=== PATIENT | male | born 1985 | race Caucasian/White ===

== ENCOUNTER 2019-10-17 16:07 | Observation (INO) ==
[2019-10-17] MEDS ORDERED: SODIUM CHLORIDE 0.9% 500 ML IV STA (16:27)
[2019-10-17] MEDS ORDERED: ONDANSETRON 4 MG/2 ML VIAL IV STA (16:27)
[2019-10-17 16:43] LABS: Basophils % 0.3 % (0.0-0.8); Eosinophils # 0.2 10*3/uL (0.0-0.87); Eosinophils % 1.1 % (0.00-10.9); Hematocrit 46.4 VOL% (42.0-52.0); Hemoglobin 15.6 GM/DL (14.0-18.0); Immature Granulocytes % 0.4 %; Immature Granulocytes Absolute 0.06 #; Lymphocytes # 2.5 10*3/uL (1.4-4.0); Lymphocytes % 18.8 % (21.2-54.2); Mean Corpuscular HGB Conc 33.6 GM/DL (32-36); Mean Corpuscular Volume 84.5 FL (87-102); Mean Platelet Volume 9.6 FL (9.6-12.0); Monocytes % 6.5 % (1.7-12.7); Neutrophils % 72.9 % (38.7-73.9); Platelet Count 262 T/CUMM (130-400); Red Blood Count 5.49 MC/CUMM (3.8-5.5); Red Cell Distribution Width 12.4 % (9.3-17.3); White Blood Count 13.4 T/CUMM (4-12)
[2019-10-17 17:05] LABS: Albumin 3.3 G/DL (3.4-5.0); Bilirubin,Total 0.7 MG/DL (0.2-1.0); Calcium 9.3 MG/DL (8.5-10.1); Osmolality,Calculated 280.1 MOS/KG (273-304); Total Protein 7.9 G/DL (6.4-8.3)
[2019-10-17] MEDS ORDERED: INSULIN REGULAR 100 UNIT/ML SUBCUT STA (17:28)
[2019-10-17] MEDS ORDERED: SODIUM CHLORIDE 0.9% 1,000 ML IV STA (17:28)
[2019-10-17] MEDS ORDERED: PIPERACILLIN/TAZOBACTAM 3,375 MG in SODIUM CHLORIDE 0.9% 100 ML IV STA (17:31)
[2019-10-17 18:01] LABS: Apearance,Urine CLEAR (Clear); Bilirubin,Urine Negative (Negative); Blood, Urine Small mg/dL (Negative); Glucose,Urine (UA) >=500 mg/dL (Negative); Ketones,Urine Negative (Negative); Nitrite,Urine Negative (Negative); Protein,Urine Negative; RBC,Urine 2 /HPF (0-4); Squamous Epithelial Cell,Urine Occasional /HPF (0-10); Urine Color Straw (Yellow); Urine Specific Gravity 1.028 (1.001-1.035); Urine Urobilinogen < 2.0 EU/DL (0.2-1.0); WBC,Urine <1 /HPF (0-6)
[2019-10-17] MEDS ORDERED: SODIUM CHLORIDE 0.9% 100 ML IV ONE (18:11)
[2019-10-17] MEDS ORDERED: FAMOTIDINE 20 MG TABLET PO ONE (18:15)
[2019-10-17] MEDS ORDERED: DIAZEPAM 5 MG TABLET PO ONE (18:15)
[2019-10-17] MEDS ORDERED: TISSUE ADHESIVE 1 EACH APPLICATOR TOP ONE (18:20)
[2019-10-17] MEDS ORDERED: LIDOCAINE 1%/EPI INJ 20 ML VIAL ONE (18:20)
[2019-10-17] MEDS ORDERED: BUPIVACAINE MPF 0.25% 30 ML VIAL ONE (18:20)
[2019-10-17] MEDS ORDERED: LACTATED RINGERS 1,000 ML IV SCH (18:30)
[2019-10-17] MEDS ORDERED: SUGAMMADEX 200 MG/2 ML VIAL IV ONE ×2 (19:54)
[2019-10-17] MEDS ORDERED: ONDANSETRON 4 MG/2 ML VIAL IV PRN ×2 (20:06→21:12)
[2019-10-17] MEDS ORDERED: HYDROmorphone 2 MG/1 ML VIAL IV PRN ×2 (20:06→21:12)
[2019-10-17] MEDS ORDERED: SEVOFLURANE 1 UNIT/15 MINUTE INH ONE (20:21)
[2019-10-17] MEDS ORDERED: propofoL 200 MG/20 ML VIAL IV ONE (20:21)
[2019-10-17] MEDS ORDERED: LIDOCAINE 2% 5 ML VIAL ONE (20:21)
[2019-10-17] MEDS ORDERED: SUCCINYLCHOLINE 200 MG/10 ML VIAL ONE (20:22)
[2019-10-17] MEDS ORDERED: LACTATED RINGERS 1,000 ML IV ONE (20:22)
[2019-10-17] MEDS ORDERED: ONDANSETRON 4 MG/2 ML VIAL ONE (20:22)
[2019-10-17] MEDS ORDERED: fentaNYL 100 MCG/2 ML VIAL ONE (20:22)
[2019-10-17] MEDS ORDERED: DEXAMETHASONE 4 MG/1 ML VIAL ONE (20:22)
[2019-10-17] MEDS ORDERED: MIDAZOLAM 2 MG/2 ML VIAL ONE (20:22)
[2019-10-17] MEDS ORDERED: ROCURONIUM 100 MG/10 ML VIAL IV ONE (20:22)
[2019-10-17] MEDS ORDERED: GLUCAGON 1 MG VIAL IM PRN (21:12)
[2019-10-17] MEDS ORDERED: DEXTROSE 50% 25 GM/50 ML VIAL IV PRN (21:12)
[2019-10-17] MEDS ORDERED: PROMETHAZINE 25 MG/1 ML VIAL IM PRN (21:12)
[2019-10-17] MEDS: LACTATED RINGERS 1,000 ML IV SCH (22:18)
[2019-10-17] MEDS: INSULIN REGULAR 100 UNIT/ML SUBCUT SCH (23:11)
[2019-10-17] MEDS: KETOROLAC 15 MG/1 ML VIAL IV SCH (23:12)
[2019-10-18] MEDS: KETOROLAC 15 MG/1 ML VIAL IV SCH ×2 (03:51→09:57)
[2019-10-18 06:26] LABS: Basophils % 0.2 % (0.0-0.8); Hematocrit 44.6 VOL% (42.0-52.0); Hemoglobin 14.6 GM/DL (14.0-18.0); Immature Granulocytes % 0.9 %; Immature Granulocytes Absolute 0.11 #; Lymphocytes # 1.2 10*3/uL (1.4-4.0); Lymphocytes % 9.4 % (21.2-54.2); Mean Corpuscular HGB Conc 32.7 GM/DL (32-36); Mean Corpuscular Volume 86.4 FL (87-102); Mean Platelet Volume 9.9 FL (9.6-12.0); Monocytes % 6.4 % (1.7-12.7); Neutrophils % 83.1 % (38.7-73.9); Platelet Count 250 T/CUMM (130-400); Red Blood Count 5.16 MC/CUMM (3.8-5.5); Red Cell Distribution Width 12.3 % (9.3-17.3); White Blood Count 12.5 T/CUMM (4-12)
[2019-10-18 06:51] LABS: Calcium 8.8 MG/DL (8.5-10.1); Osmolality,Calculated 283.8 MOS/KG (273-304)
[2019-10-18] MEDS: LACTATED RINGERS 1,000 ML IV SCH (07:08)
[2019-10-18] MEDS: INSULIN REGULAR 100 UNIT/ML SUBCUT SCH ×2 (09:56→12:52)
[2019-10-18 12:25] VITALS: BP 139/80
[2019-10-18] MEDS ORDERED: ENOXAPARIN 40 MG/0.4 ML SYRINGE SUBCUT SCH (14:00)
== END 2019-10-18 12:41 | disposition home or self-care (01) ==
LOC: N.ED 16:07 → N.EDINP 16:07 → N.TELES 18:22
PROVIDERS: ADMIT Surgery; ATTEND Surgery